=== PATIENT | female | born 1995 | race Caucasian/White ===

== ENCOUNTER 2023-08-30 14:58 | Observation (INO) | payer SELFPAY ==
--- NOTE | ~2023-08-30 | CT_ITS ---
EXAMINATION: CT abdomen pelvis w con DATE: 08/30/2023 16:53 INDICATION: lower abdomen pain TECHNIQUE: Computed tomography (CT) of the abdomen and pelvis was performed with 100 mL Omnipaque-350 intravenous contrast. Automated exposure control and iterative reconstruction technique were employe d. The dose-length product was 631.53 mGy-cm. COMPARISON: None. FINDINGS: Lower thorax: 2.4 cm soft tissue density in the lower outer quadrant of the left breast. 4 mm nodules in the lower inner quadrant of the left breast. Liver: Normal. Biliary/Gallbladder: Gallbladder is normal. No bile duct dilation. Pancreas: No mass or duct dilation. Spleen: Normal. Adrenals:No mass. Kidneys: No suspicious mass, obstructing stone, or hydronephrosis. Contrast excretion limits evaluati on for renal stones. GI tract: No small bowel dilation. The rectum is mildly dilated by fecal material. Appendix is dilate d to 11 mm. Appendiceal wall hyperemia. Appendicolith. Mesentery/Peritoneum: No ascites, mass, or free air. Retroperitoneum: No mass. Pelvis: Pelvic organs are within normal limits. Urinary bladder mostly empty. Soft Tissues: Soft tissues and body wall unremarkable. Bones: No acute osseous finding. IMPRESSION: CT findings likely represent early acute uncomplicated appendicitis. Possible mild fecal impaction. Multiple left breast nodules, recommend referral for diagnostic mammography and breast ultrasound. Reviewed, dictated and finalized at location [facility].
[2023-08-30 15:11] VITALS: BP 103/62; PULSE 95; RESP 20; TEMP 35.9; O2SAT 100
--- NOTE | 2023-08-30 15:11 | ED.ABDPAIN ---
HPI - Abdominal Pain General Chief Complaint: Abdominal Pain <Dontrell Rodriguez APRN - Last Filed: 08/31/23 08:10> Stated Complaint: ABD pain <Dontrell Rodriguez APRN - Last Filed: 08/31/23 08:10> Time Seen by Provider: 08/30/23 15:11 <Dontrell Rodriguez APRN - Last Filed: 08/31/23 08:10> Source: patient <Dontrell Rodriguez APRN - Last Filed: 08/31/23 08:10> Mode of arrival: ambulatory <Dontrell Rodriguez APRN - Last Filed: 08/31/23 08:10> Limitations: no limitations <Dontrell Rodriguez APRN - Last Filed: 08/31/23 08:10> History of Present Illness HPI narrative: Sparkle is a 28-year-old female patient presenting to the ER today with complaints of abdominal pain and nausea since noon today. She reports pain is worse after eating and rates it a 10/10. States the pain is sharp/burning and constant. Denies any urinary symptoms. Denies any fever or chills. Is currently on her menses. Denies any chest pain or shortness of breath. Last bowel movement was yesterday and normal for the patient. No history of ovarian cyst. Patient has no known medical history other than having endoscopy done. Patient is adopted. Last time she ate was 11:00 a.m.-few bites of a taco. <Dontrell Rodriguez APRN - Last Filed: 08/31/23 08:10> Related Data Home Medications: Home Medications Medication Instructions Recorded Confirmed lisdexamfetamine 30 mg capsule 30 mg PO DAILY 08/30/23 08/30/23 (Vyvanse) ondansetron HCl 8 mg tablet 8 mg PO TID PRN Nausea And Vomiting 08/30/23 08/30/23 <Dontrell Rodriguez APRN - Last Filed: 08/31/23 08:10> Allergies/Adverse Reactions: Allergies Allergy/AdvReac Type Severity Reaction Status Date / Time No Known Allergies Allergy Verified 08/30/23 14:59 <Dontrell Rodriguez APRN - Last Filed: 08/31/23 08:10> Review of Systems Review of Systems: Pertinent positives per HPI. Patient denies any fever, chills, rash, headache, visual changes, dizziness, cough, shortness of breath, chest pain, palpitations, nausea, vomiting, diarrhea, constipation,or any urinary issues. <Dontrell Rodriguez APRN - Last Filed: 08/31/23 08:10> [facility] Social History Social History: Social History Smoking status: Never smoker Alcohol intake: current Drinks per week: 10 Substance use: current Substance use type: marijuana Last use: 08/27/22 Do You Feel Safe in your Home?: Yes Lack of Transportation: No Lack of Food: Never True Current Housing: I Have Housing Concerned About Future Housing: No Difficulty Paying Gas/Electric Bills: No Difficulty Paying for Meds: No Currently Unemployed: No Education: High School Diploma/GED Difficulty w/ Childcare or Family Care: No Spiritual care concerns: No <Dontrell Rodriguez APRN - Last Filed: 08/31/23 08:10> Comments At the time of my signature, I reviewed and agree with the nursing past medical, surgical, social, and family history. There is no relevant family history pertinent to the patient complaint. <Dontrell Rodriguez APRN - Last Filed: 08/31/23 08:10> Exam Narrative: General: Well-developed, well nourished, in no apparent distress. Head: Normocephalic, atraumatic. Cardio: Regular rate and rhythm, s1 and s2 normal, no murmur appreciated. Resp: Clear to auscultation bilaterally, no rhonchi, rales, wheezing or rubs. Abdomen: Soft, pliable, bowel sounds present in all quadrants, guarding of lower abdomen, bilateral lower abdomen tender to palpation, no organomegly, no CVAT tenderness.. <Dontrell Rodriguez APRN - Last Filed: 08/31/23 08:10> Course Course Emergency Course: Portions of this record may have been created with voice recognition software. <Dontrell Rodriguez APRN - Last Filed: 08/31/23 08:10> CART DRIVER/PA Physician Supervision This visit was performed by both a physician and an APC. I per
[2023-08-30] MEDS: SODIUM CHLORIDE 0.9% IV 1,000 ML 999 ML IV CONT ×2 (15:37→16:58)
[2023-08-30] MEDS: MORPHINE SULFATE (*CRX) 2 MG/ML INJ IV PUSH ×2 (15:38→16:11)
[2023-08-30 15:41] LABS: Basophils Absolute Auto 0.1 K/mm3 (0.0-0.1); Basophils Percent Auto 0.3 % (0.2-1.2); Eosinophils Absolute Auto 0.1 K/mm3 (0-0.3); Eosinophils Percent Auto 0.3 % (0-4.4); Hematocrit 42.3 % (37.0-47.0); Hemoglobin 13.8 g/dL (12.0-15.0); Immature Granulocyte Absolute 0.09 K/mm3 (0.00-0.031); Immature Granulocyte Percent A 0.5 % (0-0.5); Lymphocytes Absolute Auto 2.85 K/mm3 (0.9-3.2); Lymphocytes Percent Auto 15.7 % (18.3-44.2); Mean Corpuscular HGB Conc 32.6 g/dl (32-36); Mean Corpuscular Hemoglobin 27.2 pg (26-34); Mean Corpuscular Volume 83.3 fl (80-100); Mean Platelet Volume 10.4 fl (7.4-10.4); Monocytes Absolute Auto 1.5 K/mm3 (0.1-0.6); Monocytes Percent Auto 8.1 % (2.6-8.5); Neutrophils Absolute Auto 13.6 K/mm3 (1.3-6.7); Neutrophils Percent Auto 75.1 % (45.5-73.1); Platelet Count Result 375 k/mm3 (150-375); Red Blood Count 5.08 M/mm3 (4.2-5.4); Red Cell Distribution Width 15.7 % (11.5-14.5); White Blood Count 18.1 K/mm3 (4.5-10.0)
--- NOTE | 2023-08-30 15:49 | PC.NURSE ---
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 Zofran d/c.
[2023-08-30 15:54] LABS: Alanine Aminotransferase 17 U/L (6-35); Albumin Level 4.8 g/dL (3.5-5.1); Alkaline Phosphatase 81 U/L (38-126); Anion Gap 14 mmol/L (8-16); Aspartate Amino Transferase 33 U/L (14-36); Bilirubin,Total 0.4 mg/dL (0.2-1.3); Blood Urea Nitrogen 10 mg/dL (7-17); Calcium 9.6 mg/dL (8.4-10.2); Carbon Dioxide 18 mmol/L (22-30); Chloride 107 mmol/L (98-107); Estimated CRCL calculation 106 ml/min; Estimated Glomerular Filt Rate > 60; Glucose 119 mg/dL (65-110); Lipase 46 U/L (23-300); Potassium 3.7 mmol/L (3.4-5.0); Sodium 139 mmol/L (137-145)
[2023-08-30 16:34] LABS: Bacteria Urine 1+ /hpf; Non Pathogenic Casts 0-2; RBC Urine >100 /hpf (0-2); Squamous Epithelial Cell Urine Few /hpf (Few)
--- NOTE | 2023-08-30 16:37 | PC.NURSE ---
Pt taken for ct at this time
[2023-08-30 16:42] LABS: Appearance Urine Cloudy (Clear); Bilirubin Urine Negative (Negative); Blood Urine 3+ (Negative); Glucose Urine UA Negative (Negative); Ketones Urine 1+ mg/dL (Negative); Leukocyte Esterase Ur Trace LEU/UL (Negative); Nitrate Urine Negative (Negative); Protein Urine 2+ mg/dL (Negative); Specific Grav Ur 1.028 (1.001-1.035); pH Urine 6.5 (5.0-9.0)
[2023-08-30 16:44] LABS: Add Urine Microscopic? YES; Color Urine Light Red (Yellow)
[2023-08-30] MEDS: PIPERACILLIN/TAZ 4.5G/NS 100ML 4.5 GM/100 ML BAG IVPB (17:33)
[2023-08-30] MEDS: MORPHINE SULFATE (*CRX) 4 MG/ML INJ IV PUSH ×3 (17:33→23:57)
[2023-08-30 17:37] VITALS: BP 110/78; PULSE 96; RESP 16; O2SAT 100
[2023-08-30 18:43] VITALS: BP 114/73; PULSE 94; RESP 18; TEMP 37.2; O2SAT 100
--- NOTE | 2023-08-30 18:43 | PC.NURSE ---
This patient, Sparkle Smith, was admitted to Medical Room 243-01. Patient/family oriented to hospital policies and general routines including ID bracelet, bed and alarms, visiting hours, pain management, procedures, bathroom and other care routines, personal items, smoking policy, room service/diet, and visiting hours. Information on how to activate the Rapid Response Team has been discussed. Patient/Family are encouraged to report perceived risks to care and to ask questions if they do not understand what they are told or what they should do.
[2023-08-30 18:48] VITALS: BMI 25.8
[2023-08-30 19:22] VITALS: BP 126/71; PULSE 98; RESP 18; TEMP 36.8; O2SAT 97
[2023-08-30] MEDS: ONDANSETRON INJ 4 MG/2 ML VIAL IV PUSH (19:31)
--- NOTE | 2023-08-30 19:32 | PC.NURSE ---
Patient states they take new supplements called lemme glow and lemme purr. Unable to add to medication history as it is not in list.
[2023-08-30] MEDS: PIPERACILLN/TAZ 3.375GM/NS50ML 3.375 GM/50 ML BAG IVPB (23:57)
[2023-08-31] VITALS (11 sets, daily range): BP systolic 100–132; BP diastolic 69–92; PULSE 52–97; RESP 14–18; TEMP 36.2–36.8; O2SAT 96–100
[2023-08-31] MEDS: ONDANSETRON INJ 4 MG/2 ML VIAL IV PUSH ×5 (00:08→16:28)
[2023-08-31] MEDS: MORPHINE SULFATE (*CRX) 4 MG/ML INJ IV PUSH ×5 (02:15→12:00)
[2023-08-31 05:14] LABS: Basophils Percent Auto 0.4 % (0.2-1.2); Eosinophils Percent Auto 0.2 % (0-4.4); Hematocrit 39.2 % (37.0-47.0); Hemoglobin 12.1 g/dL (12.0-15.0); Immature Granulocyte Absolute 0.03 K/mm3 (0.00-0.031); Immature Granulocyte Percent A 0.3 % (0-0.5); Lymphocytes Absolute Auto 1.41 K/mm3 (0.9-3.2); Lymphocytes Percent Auto 13.3 % (18.3-44.2); Mean Corpuscular HGB Conc 30.9 g/dl (32-36); Mean Corpuscular Hemoglobin 26.7 pg (26-34); Mean Corpuscular Volume 86.3 fl (80-100); Mean Platelet Volume 10.7 fl (7.4-10.4); Monocytes Absolute Auto 1.1 K/mm3 (0.1-0.6); Monocytes Percent Auto 10.5 % (2.6-8.5); Neutrophils Percent Auto 75.3 % (45.5-73.1); Platelet Count Result 248 k/mm3 (150-375); Red Blood Count 4.54 M/mm3 (4.2-5.4); Red Cell Distribution Width 15.9 % (11.5-14.5); White Blood Count 10.6 K/mm3 (4.5-10.0)
[2023-08-31 05:33] LABS: Alanine Aminotransferase 15 U/L (6-35); Alkaline Phosphatase 79 U/L (38-126); Anion Gap 6 mmol/L (8-16); Aspartate Amino Transferase 26 U/L (14-36); Bilirubin,Total 0.7 mg/dL (0.2-1.3); Blood Urea Nitrogen 10 mg/dL (7-17); Calcium 8.8 mg/dL (8.4-10.2); Carbon Dioxide 24 mmol/L (22-30); Chloride 109 mmol/L (98-107); Estimated CRCL calculation 84 ml/min; Estimated Glomerular Filt Rate > 60; Glucose 93 mg/dL (65-110); Potassium 3.4 mmol/L (3.4-5.0); Sodium 139 mmol/L (137-145)
[2023-08-31] MEDS: PIPERACILLN/TAZ 3.375GM/NS50ML 3.375 GM/50 ML BAG IVPB ×2 (05:53→11:30)
--- NOTE | 2023-08-31 09:42 | PM.IMHP ---
H&P: HPI History of Present Illness Date/Time: 08/31/23 09:42 Chief Complaint: Right lower quadrant abdominal pain Narrative: This is a 28-year-old female who presented to the ER yesterday with complaints of right lower quadrant abdominal pain. Her abdominal pain started yesterday. She had associated nausea and vomiting. Her abdominal pain radiates across her lower abdomen, worse in the right lower quadrant. Denies fever or chills. She has never had this pain in the past. Her pain progressively worsened and she presented to the ER for evaluation. Labs significant for a white blood cell count of 18,100 with a left shift. CT scan of the abdomen and pelvis showed likely early acute uncomplicated appendicitis with an appendicolith, possible mild fecal impaction, and multiple left breast nodules. Recommend referral for diagnostic mammogram and breast ultrasound. She was admitted and started on IV Zosyn. Labs repeated this morning and showed her white blood cell count was down to 10,000. She remains afebrile. No previous abdominal surgeries. She was aware of the left breast nodules, but failed to follow up for further imaging in the past. Review of Systems Review of Systems: All systems reviewed & are unremarkable except as noted in HPI and below PMFSH Past Medical History Medical History IBS (irritable bowel syndrome) Surgical History Surgical History History of colonoscopy Family History Family History Other No pertinent family history Social History Social History Smoking status: Never smoker Alcohol intake: current Drinks per week: 10 Substance use: current Substance use type: marijuana Last use: 08/27/22 Do You Feel Safe in your Home?: Yes Lack of Transportation: No Lack of Food: Never True Current Housing: I Have Housing Concerned About Future Housing: No Difficulty Paying Gas/Electric Bills: No Difficulty Paying for Meds: No Currently Unemployed: No Education: High School Diploma/GED Difficulty w/ Childcare or Family Care: No Spiritual care concerns: No Meds Home Medications and Allergies Home Medications Medication Instructions Recorded Confirmed Type lisdexamfetamine 30 mg capsule 30 mg PO DAILY 08/30/23 08/30/23 History (Martin) ondansetron HCl 8 mg tablet 8 mg PO TID PRN Nausea And Vomiting 08/30/23 08/30/23 History Allergies Allergy/AdvReac Type Severity Reaction Status Date / Time No Known Allergies Allergy Verified 08/30/23 14:59 Vital Signs Vital Signs - 24 hr 08/30/23 15:11 08/30/23 17:37 08/30/23 18:43 Temperature 96.6 F L 98.9 F Pulse Rate 95 96 94 Respiratory Rate 20 16 18 Blood Pressure 103/62 110/78 114/73 Pulse Oximetry 100 100 100 Oxygen Delivery 08/30/23 19:22 08/30/23 21:20 08/31/23 06:00 Temperature 98.3 F 97.5 F L Pulse Rate 98 67 Respiratory Rate 18 18 Blood Pressure 126/71 100/86 Pulse Oximetry 97 99 Oxygen Delivery Room Air Exam Const: General: uncomfortable (Due to abdominal pain) Nutritional Appearance: average body habitus Orientation/consciousness: patient oriented x3 HENMT: Head: normocephalic and atraumatic Ears: hearing grossly normal bilaterally Mouth: Yes moist mucous membranes Eyes: General: appearance normal, both eyes and all related structures Pupils: Equal, round and reactive pupils present Neck: Neck: normal visual inspection and full ROM Resp: Effort & Inspection: no respiratory distress Auscultation: clear to auscultation bilaterally Cardio: Rate: regular rate Rhythm: regular rhythm Heart sounds: S1 normal heart sound present and S2 normal heart sound present Skin: General skin exam: normal color Neuro: General: moves all extremities and
[2023-08-31] MEDS: KCL 20MEQ/0.9% SOD CHL 1,000 ML 100 ML IV CONT (09:58)
[2023-08-31] MEDS: LACTATED RINGERS 1,000 ML 30 ML IV CONT ×2 (12:10→14:30)
--- NOTE | 2023-08-31 12:35 | WPDANESEPPF ---
Anes - Initial Pre Proc Eval Procedure: Operation Date: 08/31/23 13:00 Proposed Procedures p Laparoscopic Appendectomy - Emily Lozano MD Date/Time: 08/31/23 12:35 Surgeon: Emily Lozano MD Pre Op Diagnosis: Acute Appendicitis Patient Data Age: 28 Gender: F Height: 1.73 m Weight: 77 kg Last Vital Signs Temp 97.5 F L 08/31/23 06:00 Pulse 67 08/31/23 06:00 Resp 18 08/31/23 06:00 BP 100/86 08/31/23 06:00 Pulse Ox 99 08/31/23 06:00 O2 Del Method Room Air 08/31/23 08:00 Allergies Allergy/AdvReac Type Severity Reaction Status Date / Time No Known Allergies Allergy Verified 08/30/23 14:59 Home Medications Medication Instructions Recorded Confirmed Type lisdexamfetamine 30 mg capsule 30 mg PO DAILY 08/30/23 08/30/23 History (Vjasmyne) ondansetron HCl 8 mg tablet 8 mg PO TID PRN Nausea And Vomiting 08/30/23 08/30/23 History Laboratory Tests 08/30/23 08/30/23 08/31/23 15:32 16:21 04:26 WBC 18.1 H K/mm3 10.6 H K/mm3 (4.5-10.0) (4.5-10.0) RBC 5.08 M/mm3 4.54 M/mm3 (4.2-5.4) (4.2-5.4) Hgb 13.8 g/dL 12.1 g/dL (12.0-15.0) (12.0-15.0) Hct 42.3 % 39.2 % (37.0-47.0) (37.0-47.0) MCV 83.3 fl 86.3 fl (80-100) (80-100) MCH 27.2 pg 26.7 pg (26-34) (26-34) MCHC 32.6 g/dl 30.9 L g/dl (32-36) (32-36) RDW 15.7 H % 15.9 H % (11.5-14.5) (11.5-14.5) Plt Count 375 k/mm3 248 k/mm3 (150-375) (150-375) MPV 10.4 fl 10.7 H fl (7.4-10.4) (7.4-10.4) Immature Gran % (Auto) 0.5 % 0.3 % (0-0.5) (0-0.5) Neut % (Auto) 75.1 H % 75.3 H % (45.5-73.1) (45.5-73.1) Lymph % (Auto) 15.7 L % 13.3 L % (18.3-44.2) (18.3-44.2) [place] % (Auto) 8.1 % 10.5 H % (2.6-8.5) (2.6-8.5) Eos % (Auto) 0.3 % 0.2 % (0-4.4) (0-4.4) Baso % (Auto) 0.3 % 0.4 % (0.2-1.2) (0.2-1.2) Lymph # (Auto) 2.85 K/mm3 1.41 K/mm3 (0.9-3.2) (0.9-3.2) Norton # (Auto) 1.5 H K/mm3 1.1 H K/mm3 (0.1-0.6) (0.1-0.6) Eos # (Auto) 0.1 K/mm3 0.0 K/mm3 (0-0.3) (0-0.3) Baso # (Auto) 0.1 K/mm3 0.0 K/mm3 (0.0-0.1) (0.0-0.1) Abs Immat Gran (auto) 0.09 H K/mm3 0.03 K/mm3 (0.00-0.031) (0.00-0.031) Absolute Neuts (auto) 13.6 H K/mm3 8.0 H K/mm3 (1.3-6.7) (1.3-6.7) Absolute Nucleated RBC 0.000 K/mm3 0.000 K/mm3 (0.0-0.012) (0.0-0.012) Nucleated RBC % 0.0 % 0.0 % (0.0-0.2) (0.0-0.2) Sodium 139 mmol/L 139 mmol/L (137-145) (137-145) Potassium 3.7 mmol/L 3.4 mmol/L (3.4-5.0) (3.4-5.0) Chloride 107 mmol/L 109 H mmol/L (98-107) (98-107) Carbon Dioxide 18 L mmol/L 24 mmol/L (22-30) (22-30) Anion Gap 14 mmol/L 6 L mmol/L (8-16) (8-16) BUN 10 mg/dL 10 mg/dL (7-17) (7-17) Creatinine 0.70 mg/dL 0.90 mg/dL (0.7-1.0) (0.7-1.0) Estim Creat Clear Calc 106 ml/min 84 ml/min Estimated GFR > 60 > 60 (59 - ) (59 - ) Glucose 119 H mg/dL 93 mg/dL (65-110) (65-110) Calcium 9.6 mg/dL 8.8 mg/dL (8.4-10.2) (8.4-10.2) Total Bilirubin 0.4 mg/dL 0.7 mg/dL (0.2-1.3) (0.2-1.3) AST 33 U/L 26 U/L (14-36) (14-36) ALT 17 U/L 15 U/L (6-35) (6-35) Alkaline Phosphatase 81 U/L 79 U/L (38-126) (38-126) Total Protein 8.0 g/dL 7.0 g/dL (6.3-8.2) (6.3-8.2) Albumin 4.8 g/dL 4.0 g/dL (3.5-5.1) (3.5-5.1) Lipase 46 U/L (23-300) Urine Color Light red H (Yellow) Urine Appearance Cloudy H (Clear) Urine pH 6.5 (5.0-9.0) Ur Specific [place] 1.028 (1.001-1.035) Urine Protein 2+ H mg/dL (Negative) Urine Glucose (UA) Negative mg/dL (Negative) Urine Ketones 1+ H mg/dL (Negative) Ur Blood (Man) 3+ H (Negative) Urine Nitrate Negative (N
[2023-08-31] MEDS: SCOPOLAMINE 1 MG PATCH 1 PATCH TRANSDERM (12:45)
--- NOTE | 2023-08-31 12:45 | WPDHPUPDATE1 ---
History and Physical Update Update Date/Time: 08/31/23 12:45 History and Physical has been reviewed, including an updated exam of the patient. There are NO changes in the patient's condition. Risks, benefits, and alternatives have been discussed and questions answered. Patient agrees to proceed with procedure.
--- NOTE | 2023-08-31 14:25 | W.PM.PROC2 ---
Procedure Note - Detailed Date of Procedure 08/31/23 Pre-op Diagnosis Acute Appendicitis Post-op Diagnosis Same Procedure Performed laparoscopic appendectomy Surgeon Emily Lozano MD Anesthesia General Indications 28-year-old female presenting to the emergency department with acute appendicitis. Findings acute appendicitis no evidence of perforation Description of Procedure The patient was taken to the operating room and placed in the supine position. After adequate induction of general anesthesia, the patient was prepped and draped in the normal sterile fashion. A time-out was then done to verify the patient's identity, as well as the procedure being performed. I began by making a 5 mm incision in the infraumbilical region, through this a Veress needle was placed in the peritoneal cavity. CO2 gas was then insufflated and after adequate pneumoperitoneum was achieved the Veress needle was removed. Then placed a 5 mm Optiview trocar under direct visualization into the peritoneal cavity. I then insufflated through this trocar site and the endoscope was placed into the trocar. Under direct visualization, placed 2 further 5 mm suprapubic port as well as an additional 12 mm port in the left lower abdomen. At this point, I identified the cecum and retracted the cecum both medially and superiorly allowing me to expose the appendix. The appendix was noted to be dilated and inflamed especially towards the tip. The appendix was noted to be very adherent to the right lateral sidewall as well as the ileum. I was able to bluntly dissect the appendix from these adhesions. I then was able to locate the base of the appendix with the cecum. I created a window with the [place] dissector between the appendix itself and the mesoappendix. I then transected the mesoappendix with a white vascular staple load. The Endo-YOUSUF was then reloaded with a blue staple load and I transected the base of the appendix. Once the specimen was completely detached, an endo-pouch was placed into the 12 mm port site and the specimen was removed through the endo-pouch. The appendiceal specimen will be sent to pathology for further review. I then copiously irrigated the right lower quadrant. Hemostasis was noted at both staple lines no other pathology was seen in this area. I then moved the camera to the suprapubic port to check our its port of entry. No iatrogenic injury or other pathology was noted in the upper abdomen. I then closed the 12 mm port site with a Porter code and 0 Vicryl suture under direct visualization. At this point, the abdomen was desufflated and all ports were removed. All port sites were closed with 4 Monocryl subcuticular suture. Dermabond was placed on all wounds. The patient tolerated the procedure well and was extubated in the operating room postop. She will be sent to the recovery room in stable condition. Estimated Blood Loss 10 Drains No Packing No Pathology Yes Complications No immediate complications Condition Stable Disposition PACU [facility] Billing Surgery - Charge Forward: Surgery Billing
[2023-08-31] MEDS: fentaNYL CITRATE INJ (*CRX) 100 MCG/2 ML VIAL 25 MCG IV PUSH ×7 (14:45→15:13)
[2023-08-31] MEDS: HYDROmorphone HCL INJ (*CRX) 1 MG/ML SYR 0.5 MG IV PUSH ×2 (15:15→15:41)
[2023-08-31] MEDS: HYDROcodone/acetaminophen (*CRX) 5-325 MG TABLET 1 TAB PO (16:28)
[2023-08-31] MEDS: MORPHINE SULFATE (*CRX) 2 MG/ML INJ IV PUSH (16:42)
--- NOTE | 2023-09-01 13:58 | PM.DS ---
DS: Admitting Diagnosis Discharge Date 08/31/23 Admitting Diagnosis acute appendicitis DS: Discharge Diagnosis Discharge Diagnosis (1) Acute appendicitis: Qualifiers: Acute appendicitis type: unspecified acute appendicitis type Qualified Code(s): K35.80 - Unspecified acute appendicitis Code(s): K35.80 - Unspecified acute appendicitis Status: Acute Assessment and Plan: doing well, cont routine postop care, await path, home c po analgesia, colace, f/u 2 wks DS: Summary Hospital Course Reason for hospitalization: acute appendicitis Hospital Course: Pt is a 28 y/o F presenting to the ED c RLQ abd pain. Workup, including imaging, was significant for acute appendicitis. The pt was admitted to the surgical services, made NPO, and started on abx. Upon evaluation and dw pt and family, the decision was made to proceed for surgical appendectomy. The pt was taken to the OR and lap appy was performed, please see full op report for details. Postop, pt did well and was returned back to the floor. Pt was able to jessy diet and pain was well controlled c po analgesia. Pt was up and ambulating s difficulty. Pt will be dc'd home c po analgesia, colace. Pt will f/u in 2 wks. Status at Discharge Functional status at discharge: independent ambulation Overall status at discharge: patient is back to baseline Time Spent with Patient Time attestation: Total time spent providing and/or coordinating discharge services: Time spent: Less than 30 minutes Exam Const: General: cooperative, comfortable and no acute distress Resp: Auscultation: clear to auscultation bilaterally Cardio: Rate: regular rate Rhythm: regular rhythm GI: Inspection: normal to inspection, distended and incision GI Palp: Yes abdominal tenderness, Yes Soft to palpation and Yes Tenderness to palpation present (GI) DS: Data Data Completed and Pending Pending studies at discharge: Pending at discharge 08/31/23 13:59 Surgical [PTH] Routine Discharge Plan Discharge Attending physician on discharge: Emily Lozano Consulting providers: Dontrell Rodriguez; Sunil Solares; Aubrey Otero; Mary Malik Discharging Clinician: Emily Lozano Anticipated Discharge Date/Time: 08/31/23 19:00 Patient Disposition: Home, Self-Care Activity: may shower and as tolerated Diet: as tolerated Wound Care Instructions: incision open to air Discharge Instructions: DISCHARGE INSTRUCTION SHEET FOR HERNIA, GALLBLADDER AND APPENDIX SURGERIES DR. LOZANO PATIENT TO TAKE HOME 1. May shower in 24 hours, no soaking in bath x 2weeks. 2. Call office for: Wound increasingly painful or bleeding Vomiting Fever of greater than 101 degrees 3. If no bowel movement for three days, take 1 oz. (30 ml) Milk of Magnesia or MiraLax 17g 1 to 2 times daily. 4. No heavy lifting > 10-15 pounds x 6 weeks for hernia repairs and 2 weeks for laparoscopic cholecystectomy or appendectomy. 5. No driving for 3 days or while taking narcotic pain medications. 6. Ice to surgical site for 48 hours (30 min on, then 30 min off). 7. Up walking 10-30 minutes three times per day. 8. Resume previous home medications. 9. Follow-up 10-14 days in office for wound check or as previously scheduled. ([phone]) 10. Oral pain medications prescription to be sent to pharmacy. Take Tylenol 500mg every 6 hours and Ibuprofen 600mg every 6 hours for the first 2 days, then as needed. 11. NUTRITION: Start out by drinking fluids and increase your diet as tolerated. If you experience nausea, try dry toast, crackers, and 7-UP. If nausea or vomiting persists, contact your surgeon?s office. 12. Gallbladders-Low Fat Diet for 2 weeks (send care note of low fat diet) 13. Inguinal Hernias-wear scrotal support for 48 hours 14. Abdominal Hernias-if sent home with abdominal binder, wear for the first 2
== END 2023-08-31 17:30 | disposition home or self-care (01) ==
LOC: ANHED 17:36 → ANH2MED 18:13
PROVIDERS: Physician Assistant; Admitting Provider Surgery; Emergency Provider Nurse Practitioner Family; PCP Internal Medicine; Visit Provider Surgery
PROC: 0DTJ4ZZ Resection of Appendix, Percutaneous Endoscopic Approach (ICD-10-PCS; CPT 44970; principal; 2023-08-31 13:00)
DX: K35.30 Acute appendicitis with localized peritonitis, without perforation or gangrene (principal); K56.41 Fecal impaction; N63.0 Unspecified lump in unspecified breast; K58.1 Irritable bowel syndrome with constipation; F10.90 Alcohol use, unspecified, uncomplicated; F12.90 Cannabis use, unspecified, uncomplicated; Z79.899 Other long term (current) drug therapy
CPT/HCPCS: 44970; 36415; 74177; 80053; 81025; 83690; 85025; 87086; 88304; 96365; 96375; 96376; 99285; A9270; G0378; J0330; J1100; J1170; J1200; J2250; J2270; J2405; J2543; J2704; J3010; J3480; J7030; J7120; Q9967

== ENCOUNTER 2023-10-06 12:57 | Outpatient (CLI) | payer OTHER, SELFPAY ==
--- NOTE | ~2023-10-06 | US_ITS ---
US breast BI complete DATE: 10/06/2023 14:29 INDICATION: Multiple left breast nodules suggested on 08/30/2023 CT abdomen pelvis report TECHNIQUE: Real-time imaging of both complete breasts, going all 4 quadrants and subareolar area of e ach breast. COMPARISON: CT abdomen pelvis FINDINGS: Right breast: 1:00 3 cm from nipple: 4.5 x 5.4 mm circumscribed hypoechoic lesion without posterior shadowing 4:00 7 cm from nipple: Parallel circumscribed mixed hypoechoic and hyperechoic lesion measuring 3 x 1 cm, with through transmission. 6:00 5 cm from nipple: Approximately 8 x 9 x 10 mm irregular incompletely circumscribed hypoechoic ar ea with some posterior shadowing; ultrasound-guided biopsy is recommended IMPRESSION: Approximately 1 cm irregular incompletely circumscribed hypoechoic area with posterior sh adowing at 6:00 5 cm from nipple BI-RADS Category 4: Suspicious abnormality; biopsy should be considered for left breast 6:00 lesion [address] Cohen gave the report and ultrasound-guided breast biopsy recommendation by telephone on 10/06/[address] Lozano. Reviewed, dictated and finalized at [facility]. Reviewed, dictated and finalized at location [facility]. IMPRESSION: Approximately 1 cm irregular incompletely circumscribed hypoechoic area with posterior shadowing at 6:00 5 cm from nipple BI-RADS Category 4: Suspicious abnormality; biopsy should be considered for lef t breast 6:00 lesion [address] Cohen gave the report and ultrasound-guided breast biopsy recommendation by telephone on 10/06/[address] Lozano.
== END 2023-10-06 12:58 | disposition home or self-care (01) ==
LOC: ANHIMG 12:59
PROVIDERS: PCP Internal Medicine; Visit Provider Surgery
DX: N63.0 Unspecified lump in unspecified breast (principal); R92.8 Other abnormal and inconclusive findings on diagnostic imaging of breast
CPT/HCPCS: 76641

== ENCOUNTER 2024-11-08 04:14 | Emergency (ER) | payer OTHER, SELFPAY ==
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
[2024-11-08 04:12] VITALS: BP 147/113; PULSE 130; RESP 16; TEMP 37.2; O2SAT 100
[2024-11-08 04:26] LABS: Basophils Percent Auto 0.5 % (0.2-1.2); Eosinophils Percent Auto 0.1 % (0-4.4); Hematocrit 41.7 % (37.0-47.0); Hemoglobin 13.5 g/dL (12.0-15.0); Immature Granulocyte Absolute 0.04 K/mm3 (0.00-0.031); Immature Granulocyte Percent A 0.5 % (0-0.5); Lymphocytes Absolute Auto 1.82 K/mm3 (0.9-3.2); Lymphocytes Percent Auto 20.5 % (18.3-44.2); Mean Corpuscular HGB Conc 32.4 g/dl (32-36); Mean Corpuscular Hemoglobin 27.6 pg (26-34); Mean Corpuscular Volume 85.1 fl (80-100); Mean Platelet Volume 10.2 fl (7.4-10.4); Monocytes Absolute Auto 0.8 K/mm3 (0.1-0.6); Monocytes Percent Auto 9.5 % (2.6-8.5); Neutrophils Absolute Auto 6.1 K/mm3 (1.3-6.7); Neutrophils Percent Auto 68.9 % (45.5-73.1); Platelet Count Result 338 k/mm3 (150-375); White Blood Count 8.9 K/mm3 (4.5-10.0)
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
[2024-11-08 04:33] LABS: BEDSIDEPREGUCG Negative (Negative)
[2024-11-08 04:34] VITALS: RESP 25; O2SAT 98
[2024-11-08 04:35] LABS: Alanine Aminotransferase 17 U/L (6-35); Albumin Level 4.8 g/dL (3.5-5.1); Alkaline Phosphatase 76 U/L (38-126); Anion Gap 15 mmol/L (4-12); Aspartate Amino Transferase 35 U/L (14-36); Bilirubin,Total 0.4 mg/dL (0.2-1.3); Blood Urea Nitrogen 10 mg/dL (7-17); Calcium 8.8 mg/dL (8.4-10.2); Carbon Dioxide 19 mmol/L (22-30); Chloride 110 mmol/L (98-107); Estimated CRCL calculation 74 ml/min; Estimated Glomerular Filt Rate > 60; Glucose 101 mg/dL (65-110); Lipase 90 U/L (23-300); Potassium 4.4 mmol/L (3.4-5.0); Sodium 144 mmol/L (137-145)
[2024-11-08 04:36] LABS: Add Urine Microscopic? NO; Appearance Urine Clear (Clear); Bilirubin Urine Negative (Negative); Blood Urine Negative (Negative); Color Urine Yellow (Yellow); Glucose Urine UA Negative (Negative); Ketones Urine Negative (Negative); Leukocyte Esterase Ur Negative LEU/UL (Negative); Nitrate Urine Negative (Negative); Protein Urine Negative (Negative); Urobilinogen Urine 0.2 mg/dL (<2.0); pH Urine 5.5 (5.0-9.0)
[2024-11-08 04:38] VITALS: BP 146/120; PULSE 128; RESP 11; O2SAT 96
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
[2024-11-08] MEDS: ONDANSETRON INJ 4 MG/2 ML VIAL IV PUSH (05:33)
[2024-11-08] MEDS: MORPHINE SULFATE (*CRX) 4 MG/ML INJ IV PUSH ×2 (05:33→06:56)
[2024-11-08] MEDS: SODIUM CHLORIDE 0.9% IV 1,000 ML 999 ML IV CONT ×2 (05:33→06:40)
[2024-11-08 05:35] LABS: Ethanol 198 mg/dL (<10)
[2024-11-08 05:46] LABS: Amphetamine Screen Urine Positive (Negative); Barbiturate Screen Urine Negative (Negative); Benzodiazepines Screen Urine Negative (Negative); Cannabinoid Screen Urine Positive (Negative); Cocaine Screen Urine Negative (Negative); Methadone Screen Urine Negative (Negative); Opiate Screen Urine Positive (Negative); Phencyclidine Screen Urine Negative (Negative)
--- OUTSIDE RECORDS SUMMARY | 2024-11-08 05:47 | XMS_ITS | Clinical Summary ---
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 30 Capsule 02/20/2024 9:43 AM CDT 02/19/2024 Active amphetamine-dex troamphetamine (ADDERALL XR) 20 mg Extended Release 24 hour capsule Take 1 Capsule (20 mg) by mouth daily. 30 Capsule 03/13/2024 3:24 PM CDT 03/12/2024 Active famotidine (Pepcid) 20 mg tablet Take 1 Tablet (20 mg) by mouth daily. 90 Tablet 05/21/2024 2:27 PM [employer] 03/24/2024 Active ondansetron (ZOFRAN) 8 mg Tablet TAKE 1 TABLET BY MOUTH EVERY 8 HOURS NEEDED FOR NAUSEA AND VOMITING 30 Tablet 05/21/2024 2:27 PM [employer] 05/18/2024 Active ondansetron (ZOFRAN) 8 mg Tablet Take 1 tablet by mouth up to 3 times a day as needed for nausea/vomiti ng 30 Tablet 2 11/03/2024 5:11 PM CDT 08/24/2024 Active amphetamine-dex troamphetamine (ADDERALL XR) 20 mg Extended Release 24 hour capsule Take 1 Capsule (20 mg) by mouth daily. 30 Capsule 09/01/2024 10:41 AM CDT 08/25/2024 Active Encounters Date Type Department Care Team Description 09/13/2024 External Device Data [facility] Provider, Abstract 08/20/2024 External Device Data [facility] Provider, Abstract 08/19/2024 External Device Data [facility] Provider, Abstract 08/16/2024 External Device Data [facility] Provider, Abstract from Last 3 Months Social History Tobacco Use Types Packs/Day Years Used Date Smoking Tobacco: Never Assessed Comments Unknown Sex and Gender Information Value Date Recorded Sex Assigned at Not on file Legal Sex Female 1:27 PM [employer] Gender Identity Not on file Sexual Orientation Not on file Last Filed Vital Signs Vital Sign Reading Time Taken Comments Blood Pressure - - Pulse - - Temperature - - Respiratory Rate - - Oxygen Saturation - - Inhaled Oxygen Concentration - - Weight 79.4 kg (175 lb) 11/03/2023 12:00 PM CDT Height 172.7 cm (5' 8 ) 11/03/2023 12:00 PM CDT Body Mass Index 26.61 11/03/2023 12:00 PM CDT Plan of Treatment Health Maintenance Due Date Last Done Comments DTAP/TDAP/TD VACCINES (1 - Tdap) 2016 HEPATITIS B VACCINES (1 of 3 - 19+ 3-dose series) 2016 CERVICAL CANCER SCREENING 2018 HPV/Cotest (21-29) 2018 PAP SMEAR 2018 INFLUENZA VACCINE (#1) 2024 HPV VACCINES Aged Out No longer eligi ble based on patient's age to complete this topic Insurance RX [employer] (INTERNAL) [facility] RX [employer] RX Member Subscriber Plan / Payer (Ef fective for All Dates) Name:Sparkle Smith Relation to Subscriber:Self Name:Sparkle Smith Payer ID:Not on file Type:RX Commercial Address: [address] Guarantor: Sparkle Smith Account Type Relation to Patient Date of Phone Billing Address Personal/Family Self [address] [place] [id number]
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
--- OUTSIDE RECORDS SUMMARY | 2024-11-08 05:48 | XMS_ITS | Data Portability ---
[facility] Address [address] [place] [address] Care Team Providers Care Engineering Department Chair Name Role Phone DONIS CHAUHAN Primary Care Provider Assessment Encounter Date Assessment Date Assessment LastModified by Organization Details LastModified Time 02/11/2024 02/11/2024 rapid COVID test positive rest fluids isolation for 5 days after 5 days if feeling fine may go out but please wear mask up until day 10 gets worse call back see me back in 6 weeks I do not want to start new medicines for ADD while she is sick Not available 02/15/2024 12:01:19 03/24/2024 03/24/2024 continue with the medicines for ADHD Pepcid for GERD in conservative measures as well cutter and paster press clippings referral for her routine care follow up with me in 6 weeks [email or web address] Not available 03/26/2024 18:29:54 05/09/2024 05/09/2024 again her nausea has been off and on for many years. Healthy lifestyle care instructions fill her medications I have told her that minimize ondansetron use can take the Pepcid every day see me 2 months has a appointment for Pap smear she says in June Not available 05/09/2024 22:21:09 Plan of Treatment Reminders Order Date Submit Date Provider Last Modified By Organization Details Last Modified Time Details Appointments None recorded. Lab CBC w/ auto diff 2023 024 [facility], [address], [place], [address], 12:50:31 CMP, serum or plasma 2023 024 [facility], [address], [place], [address], 5 12:50:31 HIV (1+2) Ab screen, serum 2023 024 [facility], [address], [place], [address], 5 12:50:31 rapid strep group A, throat 2023 024 [id number] In-Office Order, Internal Use Only DO Not Attach Compendium DO Not Attach Compendium, Do Not Delete/merge, [id number] 4 17:35:55 influenza virus A + B + SARS-CoV-2 (COVID19) Ag panel, rapid IA, upper respiratory specimen 2023 024 [id number] In-Office Order, Internal Use Only DO Not Attach Compendium DO Not Attach Compendium, Do Not Delete/merge, [id number] 4 17:35:55 Referral gynecologis t referral 2023 024 keith Alfaro MD, [address] [facility] [address], [place], [address], 5 09:05:44 Procedures None recorded. Surgeries None recorded. Imaging None recorded. Medication Orders Pepcid 20 mg tablet 2023 024 [email or web address] [facility], [address] [facility] [facility] , [place], [place], [id number], 4 17:57:18 Patient TargetsNo targets recorded. 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 Referring Physician: Donis Chauhan, Internal Medicine, Encounter Date: 03/24/2024 Results Created Date Observation Date Name Description Value Unit Range Abnormal Flag Note LastModifiedBy Organization Detail LastModifiedTime 02/11/20 24 02/11/2024 rapid strep group A, throa t Strep negati ve Not Available In-Office Order Internal Use Only DO Not Attach Compendium DO Not Attach Compendium, Do Not Delete/merge, [id number] 02/11/2024 11:50:43 02/11/20 24 02/11/2024 influ emma virus A + B + SARS- CoV-2 (COVI D19) Ag panel , rapid IA, upper respi rator y speci men Flu A negati ve Not Available In-Office Order Internal Use Only DO Not Attach Compendium DO Not Attach Compendium, Do Not Delete/merge, [id number] 02/11/2024 11:49:09 02/11/20 24 02/11/2024 influ emma virus A + B + SARS- CoV-2 (COVI D19) Ag panel , rapid IA, upper respi rator y speci men Flu B negati ve Not Available In-Office Order Internal Use Only DO Not Attach Compendium DO Not Attach Compendium, Do Not Delete/merge, [id number] 02/11/2024 11:49:09 02/11/20 24 02/11/2024 influ emma virus A + B + SARS- CoV-2 (COVI D19) Ag panel , rapid IA, upper respi rator y speci men Rapid SARS CoV 2 Ag, QL IA, respiratory specimen positi ve Not Available In-Office Order Internal Use Only DO Not Attach Compendium DO Not Attach Compendium, Do Not Delete/merge, [id number] 02/11/2024 11:49:09 Result Notes None recorded. Problems Name Problem SNOMED Code Status Onset Date Resolution Date Notes Provider Name and Address Organization Details Recorded Time Undifferentiat ed attention deficit disorder 99157187 Active 2023 Donis Chauhan MD Attn: Pam mittal,[address] [facility], [place], [address], [facility] 22:21:29 Nausea 650007311 Active 2023 Donis Chauhan MD Attn: Pam mittal,[address] [facility], [place], [address], [facility] 4 22:21:30 Problem Notes None recorded. Procedures Surgical History Date Name Laterality Status Provider Name and Address Organization Details Recorded Time Appendectomy completed Anushka Collins MA [facility] 02/11/2024 11:31:48 Imaging Results None recorded. Procedure Notes None recorded. Medical Equipment None Reported. Allergies No known drug allergies Medications Name Sig Start Date Stop Date Status Note LastModified by Organization Details LastModified Time amoxicill in 500 mg capsule TAKE 1 CAPSULE BY MOUTH TWICE DAILY 02/10 completed Not Available Not Available Not Available fluconazo le 150 mg tablet TAKE 1 TABLET BY MOUTH ONE DOSE 02/10 completed Not Available Not Available Not Available hydrocodo ne 5 mg-acetam inophen 325 mg tablet TAKE 1 TABLET BY MOUTH EVERY 6 HOURS NEEDED FOR PAIN 02/10 completed Not Available Not Available Not Available ondansetr on HCl 8 mg tablet TAKE 1 TABLET BY MOUTH EVERY 8 HOURS NEEDED FOR NAUSEA AND VOMITING active Not Available Not Available No t Available sumatript an 50 mg tablet 02/10 completed Not Available Not Available Not Available ondansetr on 8 mg disintegr ating tablet DISSOLVE ONE TABLET BY MOUTH EVERY 8 HOURS NEEDED FOR NAUSEA OR VOMITING 02/10 completed Not Available Not Available Not Available dextroamp hetamine- amphetami ne ER 20 mg 24hr capsule,e xtend release Take 1 Capsule (20 mg) by mouth daily. 2024 active Not Available Not Available Not Avai lable docusate sodium 100 mg capsule TAKE ONE CAPSULE BY MOUTH TWICE DAILY 02/10 completed Not Available Not Available Not Available Pepcid 20 mg tablet Take 1 tablet every day by oral route. 2023 active Not Available Not Available Not Avai lable lisdexamf etamine 30 mg capsule Take 1 capsule every day by oral route. 02/15 completed Did not work for patient Not Available Not Available Not Available Vitals Date Recorded Body height Body mass index (BMI) Body weight Heart rate Oxygen saturation Oxygen saturation in Arterial blood by Pulse oximetry Systolic And Diastolic Provider Name and Address Organization Details Last Updated DateTime 170.18 cm 26.3 kg/m2 11889.9 5 g 111 /min 98 % 98 % 124/68 mm[Hg] Anushka Collins [place] - [facility] 4 11:37:11 Date Recorded Body height Body mass index (BMI) Body weight Heart rate Oxygen saturation Oxygen saturation in Arterial blood by Pulse oximetry Systolic And Diastolic Provider Name and Address Organization Details Last Updated DateTime 4 170.18 cm 26.3 kg/m2 41106.4 4 g 91 /min 99 % 99 % 120/70 mm[Hg] Anushkadebra Collins [place] - [facility] 4 11:38:29 Date Recorded Body height Body mass index (BMI) Body weight Heart rate Oxygen saturation Oxygen saturation in Arterial blood by Pulse oximetry Systolic And Diastolic Provider Name and Address Organization Details Last Updated DateTime 4 170.18 cm 26.2 kg/m2 66384.7 2 g 109 /min 99 % 99 % 120/64 mm[Hg] Anushka ADILENE Collins [place] - [facility] 10:47:10 Social History Question Answer Notes LastModified by [employer] Details LastModified Time Tobacco Smoking Status Never Smoker Anushka Dennis ADILENE null, [place] - [facility] 02/11/2024 11:32:10 Do You Have An Advance Directive? No Information n ot available 02/11/2024 Are You Blind Or Do You Have Difficulty Seeing? No Information n ot available 02/11/2024 What Is Your Level Of Caffeine Consumption? Moderate Information not available 02/11/2024 In The 14 Days Before Symptom Onset, Have You Had Close Contact With A Laboratory-confirm ed COVID-19 While That Case Was Ill? No Information n ot available 02/11/2024 In The 14 Days Before Symptom Onset, Have You Had Close Contact With A Person Who Is Under Investigation For COVID-19 While That Person Was Ill? No Information not available 02/11/2024 Have You Been To An Area Known To Be High Risk For COVID-19? No Information not available 02/11/2024 Are You Deaf Or Do You Have Serious Difficulty Hearing? No Information not available 02/11/2024 What Type Of Diet Are You Following? REGULAR Information n ot available 02/11/2024 Are There Any Guns Present In Your Home? No Information not available 02/11/2024 What Was The Date Of Your Most Recent Tobacco Screening? 05/09/2024 Information not available 05/09/2024 What Is Your Relationship Status? Single Information not available 02/11/2024 Do You Use Your Seat Belt Or Car Seat Routinely? Yes Information not available 02/11/2024 Do You Have Smoke And Carbon Monoxide Detectors In Your Home? Yes Information not available 02/11/2024 Do You Use Sunscreen Routinely? Yes Information not available 02/11/2024 Has Tobacco Cessation Counseling Been Provided? No Information not available 02/11/2024 Sex: Female Functional Status Question Answer Note LastModified by Organizat ion Details LastModified Time Do you use any illicit or recreational drugs? No Information not available 02/11/2024 Do you or have you ever used any other forms of tobacco or nicotine? No Information not available 02/11/2024 What is your level of alcohol consumption? Occasional Information not available 02/11/2024 Are you currently employed? No Information not available 02/11/2024 Are you able to care for yourself? Yes Information n ot available 02/11/2024 What is your exercise level? None Information not available 02/11/2024 Mental Status Question Answer Note LastModified by Organization D etails LastModified Time Do you feel stressed (tense, restless, nervous, or anxious, or unable to sleep at night)? [id number] Information not available 02/11/2024 Family History Nothing Reported. Medical History Condition Response Anxiety Disorder Y Acid Reflux (GERD) Y Headaches Y Gynecological History Statement/Question Response Flow Moderate Date of LMP 03/24/2024 Frequency of Cycle (Q days) 28 Menses Monthly Y Duration of Flow (days) 4 Current Control Method None LMP Definite Obstetrics History GPAL:G 0 P 0 0 0 0 Immunizations Vaccine Type Date Status Note Provider Nam e and Address Organization Details Recorded Time Hib, unspecified formulation 8 completed Annette Rivera [place], [place] [facility] 07/25/2024 14:44:45 Hib, unspecified formulation 8 completed Annette [place], [place] [facility] 07/25/2024 14:44:45 Hib, unspecified formulation 9 completed Annette [place], [place] [facility] 07/25/2024 14:44:45 Hib, unspecified formulation 8 completed Annette [place], [place] [facility] 07/25/2024 14:44:45 meningococcal ACWY, unspecified formulation 9 completed [facility] Rivera, [place] [facility] 07/25/2024 14:44:45 meningococcal ACWY, unspecified formulation 4 completed Annette [place], [place] [facility] 07/25/2024 14:44:45 MMR 3 completed [facility], [place] [facility] 07/25/2024 14:44:45 MMR 9 completed [facility], [place] [facility] 07/25/2024 14:44:45 influenza, unspecified formulation 4 completed [facility] Rivera, [place] [facility] 07/25/2024 14:44:45 Tdap 8 completed [facility], [place] [facility] 07/25/2024 14:44:45 varicella 9 completed [facility], [place] [facility] 07/25/2024 14:44:45 Hep B, unspecified formulation 8 completed [facility] Rivera, [place] [facility] 07/25/2024 14:44:45 Hep B, unspecified formulation 8 completed Annette [place], [place] [facility] 07/25/2024 14:44:45 Hep B, unspecified formulation 8 completed [facility] [place], [place] [facility] 07/25/2024 14:44:45 polio, unspecified formulation 3 completed [facility], [place] [facility] 07/25/2024 14:44:45 polio, unspecified formulation 9 completed [facility] [place], [place] [facility] 07/25/2024 14:44:45 polio, unspecified formulation 8 completed [facility] [place] [facility] 07/25/2024 14:44:45 polio, unspecified formulation 8 completed [facility] [place] [facility] 07/25/2024 14:44:45 rotavirus, tetravalent 8 completed [facility], [place] [facility] 07/25/2024 14:44:45 rotavirus, tetravalent 8 completed [facility] [place] [facility] 07/25/2024 14:44:45 rotavirus, tetravalent 8 completed [facility] [place] [facility] 07/25/2024 14:44:45 HPV, quadrivalent 8 completed [facility] [place] [facility] 07/25/2024 14:44:45 HPV, quadrivalent 9 completed [facility] [place] [facility] 07/25/2024 14:44:45 HPV, quadrivalent 7 completed [facility] [place] [facility] 07/25/2024 14:44:45 DTaP, unspecified formulation 3 completed [facility] [place] [facility] 07/25/2024 14:44:45 DTaP, unspecified formulation 8 completed [place] [facility] 07/25/2024 14:44:45 DTaP, unspecified formulation 8 completed [facility] [place] [facility] 07/25/2024 14:44:45 DTaP, unspecified formulation 9 completed [facility] [place] [facility] 07/25/2024 14:44:45 DTaP, unspecified formulation 8 completed [facility] [place] [facility] 07/25/2024 14:44:45 Hep A, unspecified formulation 8 completed Annette [place] [facility] 07/25/2024 14:44:45 Hep A, unspecified formulation 7 completed ADIL[place] [facility] 07/25/2024 14:44:45 Past Encounters Encounter ID Performer Location Encounter Start Date Encounter Closed Date Diagnosis/Indication Diagnosis SNOMED-CT Code Diagnosis ICD10 Code Diagnosis Note [id number] Donis Chauhan MD [facility] [place] [address] [place] [address] 02/11/2024 10:23:00 02/11/2024 12:31:01 Cough 08568558 R05.9 Sore throat 400128932 J0 2.9 COVID-19 253958806 U07.1 [id number] Donis Chauhan MD [facility] [place] [address] [place] [address] 03/24/2024 11:17:26 03/24/2024 12:06:08 Attention deficit hyperactivity disorder 662902569 F90.9 Gastroesop hageal reflux disease without esophagitis 505900591 K21.9 Nausea 647971365 R11.0 HIV screening 247378409 Z11.4 Gynecologi c examination 39878321 Z01.489 [id number] Donis Chauhan MD [facility] [employer] [facility] [place] [address] [place] [address] 05/09/2024 10:36:18 05/09/2024 11:14:26 Overweight 869769991 E66.3 Undifferen tiated attention deficit disorder 85718374 F90.8 Nausea 662262912 R11.0 Health Concerns Section Related Observation LastModified by Organization Detai ls LastModified Time None Recorded Concern Status LastModified by Organization Details LastModified Time None Recorded Advance Directives Directive N: Payers Encounter Date Sequence Insurance Name Policy Number Policy Crotes Covered Member ID Cortes Member ID Guarantor Name 02/11/2024 1 [employer] [facility] [id number] Sparkle Smith [id number] Sparkle Smith 03/24/2024 1 [employer] [id number] Sparkle Smith [id number] Sparkle Smith 05/09/2024 1 [id number] Sparkle Smith [id number] Sparkle Smith Notes Date Note Type Note Provider Name and Address Organization Details Recorded Time 02/11/2024 text/html 1. Cough congestion sore throat 48 hours 2. Needs to be back on ADD meds has been on Vyvanse in the past but insurance does not pay for it Donis Chauhan MD Attn: Accounting[address] [facility], [place], [address], [facility] 02/15/2024 12:01:34 03/24/2024 text/html her ADD medicine s working fine no side effects. She has had some nausea for some time but no abdominal pain no vomiting. this has been going off and on for over a year She needs cutter and paster press clippings referral Donis Chauhan MD Attn: [address] [facility], [place], [address], [facility] 03/26/2024 18:31:13 05/09/2024 text/html ADD medicines sh e is doing fine she is focusing a lot better. Intermittent nausea better Donis Chauhan MD Attn: Accounting[address] [facility], [place], [address], [facility] 05/09/2024 22:21:51 OBGyn Episode No OBEpisode recorded.
--- OUTSIDE RECORDS SUMMARY | 2024-11-08 05:48 | XMS_ITS | Data Portability ---
Author Organization [facility] [address], Main Office Address [address] [place] [address] Assessment Encounter Date Assessment Date Assessment LastModified by Organization Details LastModified Time 04/02/2023 04/02/2023 Will obtain blood work put her back on Vyvanse GERD conservative measures but take Pepcid daily for now I will see her back in about 3 weeks Not available 04/02/2023 21:50:56 Plan of Treatment Reminders Order Date Submit Date Provider Last Modified By Organization Details Last Modified Time Details Appointments None recorded . Lab TSH, serum or plasma 04/02/[address] (Lab), [address] [place], [address], 4 18:32:16 T4, free, serum 023 04/02/[address] (Lab), [address] [place], [address], 4 18:32:17 T3, free, serum or plasma 023 04/02/[address] (Lab), [address] [place], [address], 4 18:32:17 CBC w/ auto diff 023 04/02/[address] (Lab), [address] [place], [address], 4 18:32:17 CMP, serum or plasma 023 04/02/20 23 [email or web address] [facility] (Lab), [address] [place], [address], 4 18:32:17 Referral None recorded . Procedures None recorded . Surgeries None recorded . Imaging None recorded . Medication Orders None recorded . Patient TargetsNo targets recorded. Patient InstructionsNo instructions recorded. Reason for Referral None Reported. Results Created Date Observation Date Name Description Value Unit Range Abnormal Flag Note LastModifiedBy Organization Detail LastModifiedTime 08/30/19 24 08/30/2023 CT, abdom en + pelvi s, w/ contr ast No observ ation record ed. [email or web address] [facility] [address], [place], [address], 12/03/2023 10:33:57 Result Notes None recorded. Problems Name Problem SNOMED Code Status Onset Date Resolution Date Notes Provider Name and Address Organization Details Recorded Time Dysmenorrhea 715901397 Active Not Available [facility] 3 16:25:47 Migraine 88199819 Active 2018 Not Available [facility] 3 16:25:47 Anxiety 13384514 Active 2018 Not Available [facility] 3 16:25:47 Fatigue 33033056 Active 2018 Not Available [facility] 3 16:25:47 Attention deficit hyperactivity disorder 777548450 Active 2022 BRITTNEY Metcalf [place] - [address] [address] [facility] 3 11:33:42 Gastroesophag eal reflux disease without esophagitis 624070737 Active 2022 BRITTNEY [place]calf [place] [facility] [address] [facility] 3 11:33:50 Problem Notes None recorded. Medical Equipment None Reported. Allergies No known drug allergies Medications Name Sig Start Date Stop Date Status Note LastModified by Organization Details LastModified Time amoxicillin 500 mg capsule TAKE 1 CAPSULE BY MOUTH THREE TIMES A DAY 06/10 completed Not Available Not Available Not Available amitriptyli ne 75 mg tablet active Not Available Not Available Not Available metoprolol succinate ER 50 mg tablet,exte nded release 24 hr TAKE 1 TABLET BY MOUTH EVERY DAY 06/10 completed Not Available Not Available Not Available sumatriptan 100 mg tablet PLEASE SEE ATTACHED FOR DETAILED DIRECTION S 06/10 completed Not Available Not Available Not Available hydrocodone 5 mg-acetamin ophen 325 mg tablet TAKE 1 TABLET BY MOUTH EVERY 6 HOURS NEEDED FOR ACUTE POSTOPERA TIVE PAIN 06/10 completed Not Available Not Available Not Available ondansetron HCl 8 mg tablet TAKE 1 TABLET BY MOUTH THREE TIMES DAILY NEEDED FOR NAUSEA AND VOMITING active Not Available Not Available No t Available sucralfate 1 gram tablet active Not Available Not Available Not Available sumatriptan 25 mg tablet 05/26 completed Not Available Not Available Not Available ondansetron HCl 4 mg tablet active Not Available Not Available Not Available rizatriptan 10 mg tablet active Not Available Not Available Not Available sumatriptan 50 mg tablet active Not Available Not Available Not Available topiramate 25 mg tablet TAKE 1 TABLET BY MOUTH AT BEDTIME FOR 1 WEEK THEN TAKE 2 TABLETS AT BEDTIME 06/10 completed Not Available Not Available Not Available ciprofloxac in 500 mg tablet 05/26 completed Not Available Not Available Not Available Tamiflu 75 mg capsule active Not Available Not Available N ot Available sulfamethox azole 800 mg-trimetho prim 160 mg tablet TAKE ONE TABLET BY MOUTH TWICE DAILY FOR 7 DAYS 06/10 completed Not Available Not Available Not Available amitriptyli ne 50 mg tablet active Not Available Not Available Not Available dexmethylph enidate 5 mg tablet active Not Available Not Available No t Available ondansetron 8 mg disintegrat ing tablet DISSOLVE ONE TABLET BY MOUTH EVERY 8 HOURS NEEDED FOR NAUSEA OR VOMITING active Not Available Not Available No t Available cyproheptad ine 4 mg tablet TAKE 1 TABLET TWICE DAILY NEEDED FOR NAUSEA (IBS) 30 DAYS ALLOWED BY PLAN 04/02 completed Not Available Not Available Not Available nadolol 20 mg tablet TAKE 1 TABLET BY MOUTH TWICE A DAY 05/26 completed Not Available Not Available Not Available amitriptyli ne 25 mg tablet active Not Available Not Available Not Available amoxicillin 250 mg/5 mL oral suspension active Not Available Not Available N ot Available amitriptyli ne 10 mg tablet active Not Available Not Available Not Available rizatriptan 10 mg disintegrat ing tablet active Not Available Not Available N ot Available cephalexin 500 mg capsule TAKE 1 CAPSULE BY MOUTH TWICE A DAY FOR 7 DAYS 06/10 completed Not Available Not Available Not Available pantoprazol e 40 mg tablet,dat yed release TAKE 1 TABLET BY MOUTH EVERY DAY 04/02 completed Not Available Not Available Not Available cephalexin 250 mg/5 mL oral suspension active Not Available Not Available N ot Available promethazin e 25 mg tablet TAKE ONE TABLET BY MOUTH EVERY 6 HOURS NEEDED 06/10 completed Not Available Not Available Not Available omeprazole 20 mg capsule,del ayed release 05/26 completed Not Available Not Available Not Available amoxicillin 250 mg capsule 05/26 completed Not Available Not Available Not Available amoxicillin 400 mg/5 mL oral suspension active Not Available Not Available N ot Available lorazepam 1 mg tablet 07/15 completed Not Available Not Available Not Available Pepcid 20 mg tablet Take 1 tablet twice a day by oral route for 30 days. active Not Available Not Available No t Available azithromyci n 200 mg/5 mL oral suspension active Not Available Not Available N ot Available levofloxaci n 750 mg tablet 05/26 completed Not Available Not Available Not Available methylpredn isolone 4 mg tablets in a dose pack TAKE DIRECTED 06/10 completed Not Available Not Available Not Available ondansetron 4 mg disintegrat ing tablet Place 2 tablets twice a day by transling ual route. active Not Available Not Available No t Available sertraline 50 mg tablet Take 1 tablet every day by oral route. 05/26 completed Not Available Not Available Not Available medroxyprog esterone 150 mg/mL intramuscul ar suspension Inject 1 mL every 3 months by intramusc ular route. 05/26 completed Not Available Not Available Not Available metoclopram darrell 10 mg tablet TAKE 1 TABLET(S) BY MOUTH BEFORE MEALS AND AT BEDTIME (4 TIMES PER DAY IF NEEDED) 06/10 completed Not Available Not Available Not Available Dorothy 0.35 mg tablet TAKE 1 TABLET BY MOUTH EVERY DAY 04/02 completed Not Available Not Available Not Available eletriptan 40 mg tablet TAKE 1 TABLET AT ONSET OF MIGRAINE- MAY REPEAT AFTER 2 HOURS IF NEEDED-MA XIMUM OF 80MG/DAY 06/10 completed Not Available Not Available Not Available methylpheni date CD 30 mg biphasic 30-70 capsule,ext ended release active Not Available Not Available Not Available cefdinir 250 mg/5 mL oral suspension active Not Available Not Available N ot Available chlorhexidi ne gluconate 0.12 % mouthwash RINSE WITH 15 ML TWICE A DAY DIRECTED 06/10 completed Not Available Not Available Not Available sumatriptan 4 mg/0.5 mL subcutaneou s pen injector INJECT 4 MG SUBCUTANE OUSLY NEEDED FOR MIGRAINE . MAY REDOSE IN 1 HOUR. MAX DOSE IS 12 MG/DAY 06/10 completed Not Available Not Available Not Available dexmethylph enidate ER 15 mg capsule,ext ended release [id number] 50 active Not Available Not Available Not Available Vyvanse 30 mg capsule Take 1 capsule every day by oral route. 2023 active last refil l: 05/22 Not Available Not Available Not Available Vyvanse 40 mg capsule TAKE ONE CAPSULE BY MOUTH EVERY DAY 05/26 completed Not Available Not Available Not Available butalbital- acetaminoph en-caffeine 50 mg-300 mg-40 mg capsule TAKE 1 TO 2 CAPSULES BY MOUTH EVERY 8 HOURS NEEDED FOR HEADACHE 06/10 completed Not Available Not Available Not Available Epiduo 0.1 %-2.5 % topical gel with pump active Not Available Not Available No t Available Vitals Date Recorded Body height Body mass index (BMI) Body weight Body temperature Heart rate Systolic And Diastolic Provider Name and Address Organization Details Last Updated DateTime 3 170.18 cm 28.2 kg/m2 51847.6 3 g 97.5 [degF] 76 /min 108/84 mm[Hg] BRITTNEY [facility] [employer] 3 10:59:49 Social History Question Answer Notes LastModified by Organizat ion Details LastModified Time Tobacco Smoking Status Never Smoker BRITTNEY Barr [facility] [employer] 04/02/2023 10:57:20 Do You Have An Advance Directive? No [email or web address] Information not available 04/02/2023 Is Blood Transfusion Acceptable In An Emergency? Yes [email or web address] Information not available 04/02/2023 What Is Your Level Of Caffeine Consumption? None [email or web address] Information not available 04/02/2023 In The 14 Days Before Symptom Onset, Have You Had Close Contact With A Laboratory-confir med COVID-19 While That Case Was Ill? No [email or web address] Information not available 04/02/2023 In The 14 Days Before Symptom Onset, Have You Had Close Contact With A Person Who Is Under Investigation For COVID-19 While That Person Was Ill? No [email or web address] Information not available 04/02/2023 What Type Of Diet Are You Following? REGULAR [email or web address] Information not available 04/02/2023 What Is The Highest Grade Or Level Of School You Have Completed Or The Highest Degree You Have Received? [id number] [email or web address] Information not available 04/02/2023 Have There Been Any Changes To Your Family Or Social Situation? No Information no t available 04/02/2023 What Is The Fluoride Status Of Your Home? Unknown [email or web address] Information not available 04/02/2023 Do You Use Insect Repellent Routinely? Yes [email or web address] Information not available 04/02/2023 Where [facility] You Live? [facility] [email or web address] Information not available 04/02/2023 Do You Have A Medical Power Of Dot Net Architect? No [email or web address] Information not available 04/02/2023 What Was The Date Of Your Most Recent Tobacco Screening? 04/02/2023 Information not available 04/02/2023 Do You Have Any Pets? Yes Information not available 04/02/2023 Do You Use Protection During Sex? Usually [email or web address] Information not available 04/02/2023 What Is Your Relationship Status? Single [email or web address] Information not available 04/02/2023 Do You Use Your Seat Belt Or Car Seat Routinely? Yes [email or web address] Information not available 04/02/2023 Are You Sexually Active? Yes [email or web address] Information not available 04/02/2023 Do You Have Smoke And Carbon Monoxide Detectors In Your Home? Yes [email or web address] Information not available 04/02/2023 Are You Passively Exposed To Smoke? No [email or web address] Information no t available 04/02/2023 Are There Any Smokers In Your House? No [email or web address] Information not available 04/02/2023 Do You Use Sunscreen Routinely? Yes [email or web address] Information not available 04/02/2023 Have You Recently Traveled Abroad? No [email or web address] Information not available 04/02/2023 Have You Used IV Drugs? No [email or web address] Information not available 04/02/2023 Do You Have Any Dietary Restrictions? No [email or web address] Information not available 04/02/2023 Sex: Female Functional Status Question Answer Note LastModified by Organizat ion Details LastModified Time Do you use any illicit or recreational drugs? Yes Marijuana [email or web address] Information not available 04/02/2023 Do you or have you ever used any other forms of tobacco or nicotine? No [email or web address] Information not available 04/02/2023 What is your level of alcohol consumption? Occasional Information not available 04/02/2023 Are you currently employed? 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 Occasional [email or web address] Information not available 04/02/2023 Mental Status Question Answer Note LastModified by Organization D etails LastModified Time Do you feel stressed (tense, restless, nervous, or anxious, or unable to sleep at night)? [id number] [email or web address] Information not available 04/02/2023 Family History Relationship Description Onset Age of this Age Resolved Age Notes LastModified by Organization Details LastModified Time Father No current problems or disability [email or web address] Not available 10:54:57 Mother No current problems or disability [email or web address] Not available 10:54:57 Notes:pt adopted Medical History Condition Response HEADACHES/MIGRAINES Y HAVE YOU BEEN HOSPITALIZED OR SEEN IN [facility] IN THE PAST YEAR ? N Gynecological HistoryNo gynecological history recorded. Obstetrics History GPAL:G 0 P 0 0 0 0 Past Encounters Encounter ID Performer Location Encounter Start Date Encounter Closed Date Diagnosis/Indication Diagnosis SNOMED-CT Code Diagnosis ICD10 Code Diagnosis Note [id number] Donis Chauhan MD [facility] Internal Med [address] [place] [address] 04/02/2023 10:35:41 04/02/2023 11:35:56 Attention deficit hyperactivity disorder 905722119 F90.9 Gastroesop hageal reflux disease without esophagitis 827530077 K21.9 Health Concerns Section Related Observation LastModified by Organization Detai ls LastModified Time None Recorded Concern Status LastModified by Organization Details LastModified Time None Recorded Advance Directives Directive N: Payers Encounter Date Sequence Insurance Name Policy Number Policy Cortes Covered Member ID Cortes Member ID Guarantor Name 04/02/2023 1 [employer] [facility] [id number] Lucina Light [id number] Sparkle Smith Notes Date Note Type Note Provider Name and Address Organization Details Recorded Time 04/02/2023 text/html 27-year-old to i ce to take care of before his come back and she has been suffering from uncontrolled ADD. Has been on Vyvanse in the past with success. 

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
[2024-11-08] MEDS: PROCHLORPERAZINE EDISYLATE 10 MG/2 ML VIAL 2.5 MG IV PUSH (06:55)
[2024-11-08 07:59] VITALS: BP 107/62; PULSE 106; PULSE 97; RESP 14; RESP 16; O2SAT 100; O2SAT 96
--- NOTE | 2024-11-08 08:22 | PC.NURSE ---
this RN was giving pt Tylenol when she put it in her mouth and then changed her mind and spit it back out. no Tylenol given
== END 2024-11-08 08:24 | disposition home or self-care (01) ==
PROVIDERS: Emergency Provider Student in an Organized Health Care Education/Training Program; PCP Internal Medicine
DX: S09.93XA Unspecified injury of face, initial encounter (principal); S39.91XA Unspecified injury of abdomen, initial encounter; S40.022A Contusion of left upper arm, initial encounter; S40.021A Contusion of right upper arm, initial encounter; S80.12XA Contusion of left lower leg, initial encounter; S80.11XA Contusion of right lower leg, initial encounter; F10.129 Alcohol abuse with intoxication, unspecified; F12.90 Cannabis use, unspecified, uncomplicated; Y90.6 Blood alcohol level of 120-199 mg/100 ml; K58.9 Irritable bowel syndrome, unspecified; Y04.2XXA Assault by strike against or bumped into by another person, initial encounter
CPT/HCPCS: 36415; 70450; 70486; 70498; 71250; 72125; 74176; 80053; 80307; 81003; 81025; 82077; 83690; 85025; 96361; 96374; 96375; 96376; 99284; J0780; J2270; J2405; J7030; Q9967